=== PATIENT | male | born 2005 | race Caucasian/White ===

== ENCOUNTER 2024-12-20 19:20 | Emergency (ER) | payer OTHER, SELFPAY ==
[2024-12-20 19:25] VITALS: BP 142/93
--- NOTE | 2024-12-20 23:23 | ED.GENMED ---
History of Present Illness
General
Chief Complaint: Eye Problems
Source: patient
Exam Limitations: none
Time Seen by Provider: 12/20/24 22:57
Nursing documentation reviewed up to this point in time: agreed with except (Left eye irritation began 2 days ago, not 1 week ago.)
History of Present Illness
History of Present Illness:
The patient is a 19-year-old male with no significant past medical history, who presented with discomfort in his left eye. The symptoms started over the weekend, approximately two days ago. The patient described the sensation as feeling like there
was something in the eye, although he did not distinctly recall any incident that would have introduced a foreign body. 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
cutting. There was no history of welding or grinding recently. The patient visited urgent care earlier today, where the provider suspected something in the eye but could not confirm. The patient reported intermittent brief tearing, with mild
discomfort peaking around 1 PM daily. No crusting was observed in the morning, and sensitivity to light was noted more in the mornings but attributed it to sunlight. He denies vision difficulty. He does not wear contacts nor corrective lenses. He
denies headache, no URI symptoms, no nasal congestion or sore throat. He has not noticed a rash. No swelling.
He takes no medicines on a daily basis.
Past History
Past History
ED Past Medical History: None
ED Past Surgical History: None
Social History
Tobacco: Non-smoker
Alcohol: Occasional
Personal: Single
Living: with family
Employment: Employed
Family History
Family History: Other (Noncontributory)
Phy Exam
Physical Exam
Physical Exam:
GENERAL: 19-year-old male appears his stated age, awake and alert, pleasant, appears in no acute distress.
EYE: pupils equal and reactive. Extraocular muscles intact. Visual acuity grossly intact. There is no tearing nor crusting. Left eye has very minimal conjunctival injection, no chemosis. Left eye visualized with fluorescein stain and Werner lamp
as well as slit-lamp exam. Cornea is clear without abrasion nor foreign body. Anterior chamber is clear. Sclera and conjunctiva intact. Lids without erythema nor edema nor crusting.
NECK: Supple, nontender, no meningismus, no significant adenopathy.
ENT: posterior pharynx is clear, oral mucosa is moist. TM clear b/l, nares patent.
CARDIAC: Regular rate and rhythm. no murmur.
LUNGS: No respiratory distress. Respirations are easy and nonlabored.
NEUROLOGICAL: Alert and oriented x3, no focal neuro deficits. Gait is saucedo and steady.
SKIN: Warm and dry, normal color, skin intact. No rash.
MUSCULOSKELETAL: No C/C/E. No palpable tenderness.
PSYCH: Normal and appropriate interaction.
Course
Orders/Labs/Results
Orders:
Orders
12/20/24 23:22
Gentamicin [Genoptic 0.3% Eye Drops] See Dose Instructions OPHTH NOW STA
Vital Signs
Initial and Last Documented VS:
Initial Vital Signs
Temp Pulse Resp BP Pulse Ox
98.4 F 73 18 142/93 99
12/20/24 19:25 12/20/24 19:25 12/20/24 19:25 12/20/24 19:25 12/20/24 19:25
Last Documented Vital Signs
Temp Pulse Resp BP Pulse Ox
98.4 F 73 18 142/93 99
12/20/24 19:25 12/20/24 19:25 12/20/24 19:25 12/20/24 19:25 12/20/24 19:25
MDM/Problems Addressed
Differential Diagnosis Includes:
The Differential Diagnosis includes, in no particular order and is not limited to:
1. Foreign body in the eye
2. Conjunctivitis (viral or bacterial)
3. Abrasion of the cornea
4. Allergic conjunctivitis
5. Blepharitis
6. Keratitis
7. Dry eye syndrome
8. Uveitis
9. Subconjunctival hemorrhage
10. Glaucomaaculopathy
MDM/Problems Addressed:
Intermittent left eye irritation x 2 days.
Werner lamp and slit lamp exam are reassuring. There is evidence of very mild conjunctival injection but otherwise unremarkable. No evidence of corneal abrasion nor corneal foreign body.
Will treat with short course of gentamicin ophthalmic drops.
Recommend hand hygiene, avoid rubbing eyes.
Will refer to ophthalmology for follow-up if needed.
*Pulse Oximetry
SaO2: 99
Oxygen Mode of Delivery: Room air
Patient hypoxic: no
*Critical Care Note
Total Time (30-74mins, 75-104mins- exclusive of procedures): Not Applicable
ED Attending Note
-
Portions of this chart may have been created with voice recognition software.� Occasional wrong word or��sound alike� substitutions may have occurred due to the inherent limitations of voice recognition software.
Discharge Plan
Departure
Patient Disposition: Home (Routine Discharge)
Date of Disposition: 12/20/24
Time of Disposition: 23:29
Patient with high blood pressure during this ER visit?: Yes
Condition: Good
Discharge Problem:
Mild conjunctivitis in left eye
Instructions: How to Use Eye Drops, Conjunctivitis (Noninfectious Pinkeye) (DC), BLOOD PRESSURE
Prescriptions:
New
gentamicin 0.3 % drops
1 drp ophthalmic (eye) QID Qty: 5 0RF
Referrals:
Nader Lam MD [Active, Ophthalmology] - As needed
Interventions
Interventions:
*Risk Screen - Suicide Last Done: 12/20/24 19:25
*General Assessment Last Done: 12/20/24 19:25
*Neglect/Abuse Screening Last Done: 12/20/24 19:25
*ED- Fall Risk Assessment Last Done: 12/20/24 19:25
*ED COVID-19 Vaccine History Last Done: 12/20/24 19:25
Discharge Date and Time
Print Language: MALTESE
[2024-12-20] MEDS: GENOPTIC 0.3% EYE DROPS 1 DROP OPHTH (23:35)
[2024-12-20 23:42] VITALS: BP 131/63
== END 2024-12-20 23:45 | disposition home or self-care (01) ==
LOC: EMR 19:20
PROVIDERS: EMERGENCY PHYSICIAN Emergency Medicine
DX: H10.9 Unspecified conjunctivitis (principal)
CPT/HCPCS: 99283